=== PATIENT | male | born 1980 | race African-American/Black ===

== ENCOUNTER 2017-04-03 09:38 | Emergency (ER) | payer SELFPAY ==
[~2017-04-03] VITALS: Ht 172.7 cm; Wt 100.0 kg
[~2017-04-03 09:38] MED LIST: PROT40TA PO
[2017-04-03 09:40] VITALS: BP 122/78; PULSE 68; RESP 24; TEMP 97.7; O2SAT 100
[2017-04-03 09:50] VITALS: BP 184/90; PULSE 76; RESP 30; O2SAT 100
[2017-04-03] MEDS ORDERED: SODIUM CHLOR 0.9% 1000 ML INJ 1,000 ML IV SCH (09:57)
[2017-04-03] MEDS ORDERED: DEXAMETHASONE SOD PHOS 20 MG/5 ML VIAL IV PUSH ONE (10:00)
[2017-04-03] MEDS ORDERED: FAMOTIDINE 20 MG/2 ML VIAL IV PUSH ONE (10:00)
[2017-04-03] MEDS ORDERED: SODIUM CHLORIDE 0.9% FLUSH 10 ML FLUSH IV FLUSH PRN (10:00)
[2017-04-03] MEDS ORDERED: diphenhydrAMINE HCL 50 MG/ML VIAL IVP ONE (10:00)
[2017-04-03] MEDS: RESP: ALBUTEROL 2.5 MG/IPRATROPIUM 0.5 MG NEB (SCH) INH (10:16)
[2017-04-03 10:17] VITALS: O2SAT 100
[2017-04-03 10:38] LABS: AUTOMATED NEUTROPHIL # 3.3 TH/MM3 (1.8-7.7); BASOPHIL # 0.1 TH/MM3 (0-0.2); BASOPHIL % 0.9 % (0.0-2.0); EOSINOPHIL # 0.2 TH/MM3 (0-0.4); EOSINOPHIL % 3.3 % (0.0-4.0); HEMATOCRIT 41.7 % (39.0-51.0); HEMO FLAGS DIFF FINAL; LYMPH % 35.3 % (9.0-44.0); LYMPHOCYTE # 2.4 TH/MM3 (1.0-4.8); MEAN CELL VOLUME 87.7 FL (80.0-100.0); MEAN CORPUSCULAR HEMOGLOBIN 30.3 PG (27.0-34.0); MEAN CORPUSCULAR HGB CONC 34.6 % (32.0-36.0); MONO % 11.4 % (0.0-8.0); NEUT % 49.1 % (16.0-70.0); PLATELET COUNT 270 TH/MM3 (150-450); RED BLOOD COUNT 4.75 MIL/MM3 (4.50-5.90); RED CELL DISTRIBUTION WIDTH 12.9 % (11.6-17.2); WHITE BLOOD COUNT 6.8 TH/MM3 (4.0-11.0)
[2017-04-03 11:00] VITALS: BP 152/75; PULSE 86; RESP 18; O2SAT 100
[2017-04-03 11:06] LABS: ANION GAP 8 MEQ/L (5-15); AST (GOT) 48 U/L (15-37); BICARBONATE 25.9 MEQ/L (21.0-32.0); BLOOD UREA NITROGEN 8 MG/DL (7-18); CHLORIDE 106 MEQ/L (98-107); GLOMERULAR FILTRATION RATE 84 ML/MIN (>89); POTASSIUM 4.2 MEQ/L (3.5-5.1); SODIUM (NA) 140 MEQ/L (136-145)
[2017-04-03 11:09] LABS: ALKALINE PHOSPHATASE 79 U/L (45-117); ALT (GPT) 43 U/L (12-78)
--- NOTE | 2017-04-03 12:05 | RADRPT ---
EXAM DATE/TIME: 04/03/2017 11:34 [place] COMPARISON: No previous studies available for comparison. INDICATIONS : Shortness of breath and cough. MEDICAL HISTORY : None. SURGICAL HISTORY : None. ENCOUNTER: Initial ACUITY: 1 day PAIN SCORE: 0/10 LOCATION: Bilateral chest FINDINGS: A single view of the chest demonstrates the lungs to be symmetrically aerated without evidence of mas s, infiltrate or effusion. The cardiomediastinal contours are unremarkable. Osseous structures are intact. CONCLUSION: No acute disease. There is no evidence of pneumonia. The study is Midinspiratory. Petr Multani MD on April 03, 2017 at 12:03 Board Certified Radiologist. This report was verified electronically.
--- NOTE | 2017-04-03 12:47 | PD ---
HPI Chief Complaint: Respiratory Symptoms Time Seen by Provider: 10:10 Travel History International Travel<30 days: No Contact w/Intl Traveler<30days: No Traveled to known affect area: No History of Present Illness HPI Patient is a 36-year-old male who presents to emergency room with complaints of sore throat, cough, congestion since last night. Patient reports that he has been sick since yesterday, reports that because of his cough, he took some robitussin last night. Reports that this morning, his throat was burning and reports that it felt sore. Patient reports that it hurts for him to swallow. Reports no fever/chills. Denies n/v. No other c/o. PFSH Past Medical History Cancer: No Cardiovascular Problems: No Diminished Hearing: No Endocrine: No Genitourinary: No Hypertension: Yes Immune Disorder: No Musculoskeletal: No Neurologic: No Psychiatric: No Reproductive: No Respiratory: No Integumentary: Yes (CELLULITIS) Tetanus Vaccination: < 5 Years Influenza Vaccination: Yes Past Surgical History Other Surgery: Yes Social History Alcohol Use: No Tobacco Use: Yes (<1/2ppd) Substance Use: No Allergies-Medications (Allergen,Severity, Reaction): Coded Allergies: Robitussin DM (Verified Allergy, Severe, THROAT CLOSING, THROAT TIGHTENING , 04/03/17) Penicillin (Verified Allergy, Unknown, 04/03/17) Reported Meds & Prescriptions Reported Meds & Active Scripts Active Epipen 2-Hay Inj (Epinephrine) 0.3 Mg/0.3 Ml Pfpen 0.3 Mg IM ONCE PRN Benadryl Allergy (Diphenhydramine HCl) 25 Mg Tab 25 Mg PO Q6H PRN 7 Days Prednisone 20 Mg Tab 20 Mg PO BID 5 Days Azithromycin 500 Mg Tab 500 Mg PO DAILY Review of Systems General / Constitutional: No: Fever Eyes: No: Visual changes HENT: Positive: Sore Throat, Rhinorrhea, No: Headaches, Neck Pain Cardiovascular: No: Chest Pain or Discomfort Respiratory: Positive: Cough, Shortness of Breath Gastrointestinal: No: Abdominal Pain Genitourinary: No: Dysuria Musculoskeletal: No: Pain Skin: No Rash Neurologic: No: Weakness Psychiatric: No: Depression Endocrine: No: Polydipsia Hematologic/Lymphatic: No: Easy Bruising Physical Exam Narrative GENERAL: moderate distress, patient very anxious on exam SKIN: Focused skin assessment warm/dry. HEAD: Atraumatic. Normocephalic. EYES: Pupils equal and round. No scleral icterus. No injection or drainage. ENT: No nasal bleeding or discharge. Mucous membranes pink and moist. Uvula midline and patent with no swelling. Pharynx open and patent with swelling, patient does have erythema to posterior pharynx, patient is not drooling, patient talking in full sentences, airway is open and patent NECK: Trachea midline. No JVD. CARDIOVASCULAR: Regular rate and rhythm. No murmur appreciated. RESPIRATORY: No accessory muscle use. Clear to auscultation. Breath sounds equal bilaterally. GASTROINTESTINAL: Abdomen soft, non-tender, nondistended. Hepatic and splenic margins not palpable. MUSCULOSKELETAL: No obvious deformities. No clubbing. No cyanosis. No edema. NEUROLOGICAL: Awake and alert. No obvious cranial nerve deficits. Motor grossly within normal limits. Normal speech. PSYCHIATRIC: Patient anxious on exam Data Data Last Documented VS Vital Signs Date Time Temp Pulse Resp B/P Pulse Ox O2 Delivery O2 Flow Rate FiO2 04/03/17 11:00 86 18 152/75 100 Room Air 04/03/17 10:17 21 04/03/17 09:40 97.7 Orders Complete Blood Count With Diff (04/03/17 09:57) Comprehensive Metabolic Panel (04/03/17 09:57) Ecg Monitoring (04/03/17 09:57) Iv Access Insert/Monitor (04/03/17 09:57) Oximetry (04/03/17 09:57) Diphenhydramine Inj (Benadryl Inj) (04/03/17 10:00) Famotidine Inj (Pepcid Inj) (04/03/17 10:00) Albuterol-Ipratropium Neb (Duoneb Neb) (04/03/17 10:00) Sodium Chlor 0.9% 1000 Ml Inj (Ns 1000 M (04/03/17 09:57) Sodium Chloride 0.9% Flush (Ns Flush) (04/03/17 10:00) Dexamethasone Inj (Decadron Inj) (04/03/17 10:00) Influenzae A/B Antigen (04/03/17 10:15) Group A Rapid Strep Screen (04/03/17 10:15) Strep Culture (Group A) (04/03/17 10:35) Chest, Single Ap (04/03/17 11:19) Azithromycin Inj (Zithromax Inj) (04/03/17 13:00) Labs Laboratory Tests Test 04/03/17 10:10 White Blood Count 6.8 TH/MM3 Red Blood Count 4.75 MIL/MM3 Hemoglobin 14.4 GM/DL Hematocrit 41.7 % Mean Corpuscular Volume 87.7 FL Mean Corpuscular Hemoglobin 30.3 PG Mean Corpuscular Hemoglobin 34.6 % Concent Red Cell Distribution Width 12.9 % Platelet Count 270 TH/MM3 Mean Platelet Volume 9.0 FL Neutrophils (%) (Auto) 49.1 % Lymphocytes (%) (Auto) 35.3 % Monocytes (%) (Auto) 11.4 % Eosinophils (%) (Auto) 3.3 % Basophils (%) (Auto) 0.9 % Neutrophils # (Auto) 3.3 TH/MM3 Lymphocytes # (Auto) 2.4 TH/MM3 Monocytes # (Auto) 0.8 TH/MM3 Eosinophils # (Auto) 0.2 TH/MM3 Basophils # (Auto) 0.1 TH/MM3 CBC Comment DIFF FINAL Differential Comment Sodium Level 140 MEQ/L Potassium Level 4.2 MEQ/L Chloride Level 106 MEQ/L Carbon Dioxide Level 25.9 MEQ/L Anion Gap 8 MEQ/L Blood Urea Nitrogen 8 MG/DL Creatinine 1.20 MG/DL Estimat Glomerular Filtration 84 ML/MIN Rate Random Glucose 78 MG/DL Calcium Level 9.3 MG/DL Total Bilirubin 1.0 MG/DL Aspartate Amino Transf 48 U/L (AST/SGOT) Alanine Aminotransferase 43 U/L (ALT/SGPT) Alkaline Phosphatase 79 U/L Total Protein 7.4 GM/DL Albumin 3.7 GM/DL [facility] Medical Decision Making Medical Screen Exam Complete: Yes Emergency Medical Condition: Yes Interpretation(s) Vital Signs Date Time Temp Pulse Resp B/P Pulse Ox O2 Delivery O2 Flow Rate FiO2 04/03/17 11:00 86 18 152/75 100 Room Air 04/03/17 10:17 100 21 04/03/17 09:50 76 30 100 Room Air 04/03/17 09:50 76 30 184/90 100 Room Air 04/03/17 09:40 97.7 68 24 122/78 100 Room Air Differential Diagnosis Allergic reaction, anxiety reaction, pharyngitis, influenza, pneumonia, bronchitis Narrative Course 36-year-old male who presents to emergency room with complaints of cough, congestion, sore throat since last night. Patient reports that he took Robitussin last night and thinks that he may have had an allergic reaction to it. Patient reports that he woke this morning and his throat feels scratchy and , reports that it hurts to swallow. Patient did not take any Benadryl at home. Patient is anxious on exam, his airways are open and patent with no pharyngeal swelling or no swelling to the uvula. Patient is talking in full sentences, no drooling on exam. I do not believe the patient is having an allergic reaction to his medications as he took the Robitussin last night. I do believe the patient does have pharyngitis, reports that he has a scratchy throat and pain with swallowing. Patient is able to swallow his own secretions, patient is in no acute distress. Vital Signs Date Time Temp Pulse Resp B/P Pulse Ox O2 Delivery O2 Flow Rate FiO2 04/03/17 11:00 86 18 152/75 100 Room Air 04/03/17 10:17 100 21 04/03/17 09:50 76 30 100 Room Air 04/03/17 09:50 76 30 184/90 100 Room Air 04/03/17 09:40 97.7 68 24 122/78 100 Room Air Last Impressions Chest X-Ray 04/03/17 1119 Signed Impressions: Service Date/Time: Monday, April 03, 2017 11:34 - CONCLUSION: No acute disease. There is no evidence of pneumonia. The study is Midinspiratory. Petr Multani MD Microbiology Date/Time Procedure Status Source Growth 04/03/17 10:35 Group A Streptococcus Screen (PRIYANKA) - Final Complete Throat 04/03/17 10:35 Influenza Types A,B Antigen (PRIYANKA) - Final Complete Nasal Washing NEGATIVE FOR FLU A AND B ANTIGEN.... 04/03/17 10:35 Group A Streptococcus Screen Received Throat Pending Laboratory Tests Test 04/03/17 10:10 White Blood Count 6.8 TH/MM3 (4.0-11.0) Red Blood Count 4.75 MIL/MM3 (4.50-5.90) Hemoglobin 14.4 GM/DL (13.0-17.0) Hematocrit 41.7 % (39.0-51.0) Mean Corpuscular Volume 87.7 FL (80.0-100.0) Mean Corpuscular Hemoglobin 30.3 PG (27.0-34.0) Mean Corpuscular Hemoglobin 34.6 % Concent (32.0-36.0) Red Cell Distribution Width 12.9 % (11.6-17.2) Platelet Count 270 TH/MM3 (150-450) Mean Platelet Volume 9.0 FL (7.0-11.0) Neutrophils (%) (Auto) 49.1 % (16.0-70.0) Lymphocytes (%) (Auto) 35.3 % (9.0-44.0) Monocytes (%) (Auto) 11.4 % (0.0-8.0) Eosinophils (%) (Auto) 3.3 % (0.0-4.0) Basophils (%) (Auto) 0.9 % (0.0-2.0) Neutrophils # (Auto) 3.3 TH/MM3 (1.8-7.7) Lymphocytes # (Auto) 2.4 TH/MM3 (1.0-4.8) Monocytes # (Auto) 0.8 TH/MM3 (0-0.9) Eosinophils # (Auto) 0.2 TH/MM3 (0-0.4) Basophils # (Auto) 0.1 TH/MM3 (0-0.2) CBC Comment DIFF FINAL Differential Comment Sodium Level 140 MEQ/L (136-145) Potassium Level 4.2 MEQ/L (3.5-5.1) Chloride Level 106 MEQ/L (98-107) Carbon Dioxide Level 25.9 MEQ/L (21.0-32.0) Anion Gap 8 MEQ/L (5-15) Blood Urea Nitrogen 8 MG/DL (7-18) Creatinine 1.20 MG/DL (0.60-1.30) Estimat Glomerular Filtration 84 ML/MIN (>89) Rate Random Glucose 78 MG/DL (74-106) Calcium Level 9.3 MG/DL (8.5-10.1) Total Bilirubin 1.0 MG/DL (0.2-1.0) Aspartate Amino Transf 48 U/L (15-37) (AST/SGOT) Alanine Aminotransferase 43 U/L (12-78) (ALT/SGPT) Alkaline Phosphatase 79 U/L (45-117) Total Protein 7.4 GM/DL (6.4-8.2) Albumin 3.7 GM/DL (3.4-5.0) Patient was treated for possible allergic reaction with Benadryl, steroids although I do not believe that he truly had an allergic reaction to Robitussin. Patient was sent home with script for epi -pen as this could be life saving should he develop a true allergic reaction. He understands need to go to closed ER for observation should he have these symptoms. Patient was monitored for over 4.5 hours, patient with no airway involvement, speaking in full sentences and is nontoxic. Patient with most likely acute pharyngitis. Plan to treat for pharyngitis, reviewed with him need to follow up with pcp. Diagnosis Primary Impression: Pharyngitis Qualified Code: J02.9 - Pharyngitis, unspecified etiology Additional Impression: Allergic reaction Patient Instructions: General Instructions Additional Instructions: Please follow up with your primary care doctor on Wednesday Please take all antibiotics as prescribed Return to ER if symptoms worsen or progress Please go to closest ER if you administer EPI pen to yourself Med/Other Pt SpecificInfo: Prescription(s) given Scripts Epinephrine Inj (Epipen 2-Hay Inj)0.3 Mg/0.3 Ml Pfpen0.3 Mg IM ONCE PRN ( ALLERGIC REACTION) #1 PACK Ref 0 Prov:Rose Cleveland DO 04/03/17 Diphenhydramine (Benadryl Allergy)25 Mg Tab25 Mg PO Q6H PRN (ALLERGIES) 7 Days Ref 0 Prov:Rose Cleveland DO 04/03/17 Prednisone 20 Mg Tab20 Mg PO BID 5 Days Ref 0 Prov:Rose Cleveland DO 04/03/17 Azithromycin 500 Mg [id number] Mg PO DAILY #5 TAB Ref 0 Prov:Rose Cleveland DO 04/03/17 Disposition: 01 DISCHARGE HOME Condition: Stable Rose Cleveland DO April 03, 2017 12:47
[2017-04-03] MEDS ORDERED: AZITHROMYCIN INJ 500 MG in SODIUM CHLOR 0.9% 250 ML INJ 250 ML IV SCH (13:00)
[2017-04-03] MEDS ORDERED: PRED20 PO (13:16)
[2017-04-03] MEDS ORDERED: AZIT500T2 PO (13:16)
[2017-04-03] MEDS ORDERED: BENA25TA3 PO (13:25)
[2017-04-03] MEDS ORDERED: EPIP0.3I IM (13:25)
== END 2017-04-03 15:19 | disposition home or self-care (01) ==
LOC: NEPE 09:38
DX: J02.9 Acute pharyngitis, unspecified (principal); T78.40XA Allergy, unspecified, initial encounter
CPT/HCPCS: 71010; 80053; 85025; 87081; 87804; 87880; 94640; 94664; 96361; 96365; 96375; 99284; J0456; J1100; J1200; J7030; J7050

== ENCOUNTER 2017-06-05 23:49 | Emergency (ER) | payer MEDICAID ==
[~2017-06-05] VITALS: Ht 172.7 cm; Wt 102.8 kg
[~2017-06-05 23:49] MED LIST changes: +AZIT500T2 PO; +BENA25TA3 PO; +EPIP0.3I IM; +PRED20 PO; -PROT40TA PO
[2017-06-06 00:06] VITALS: BP 119/87; PULSE 72; RESP 14; TEMP 98; O2SAT 100
[2017-06-06 00:15] VITALS: RESP 18
[2017-06-06] MEDS ORDERED: IBUP800T23 PO (00:21)
[2017-06-06] MEDS ORDERED: ACET325C (00:21)
[2017-06-06] MEDS ORDERED: ASPI325T PO (00:21)
[2017-06-06 00:51] VITALS: BP 125/67; PULSE 68; RESP 18; O2SAT 97
[2017-06-06] MEDS ORDERED: IBUP-1129 PO (00:52)
[2017-06-06] MEDS ORDERED: OFLO0.3D9 RIGHT EAR (00:52)
--- NOTE | 2017-06-06 00:52 | PD ---
HPI Chief Complaint: ENT Complaint Time Seen by Provider: 00:49 Travel History International Travel<30 days: No Contact w/Intl Traveler<30days: No Traveled to known affect area: No History of Present Illness HPI 36-year-old male patient presents to the ER with 2 days history of right ear pain and drainage. He states that it started after he went swimming in the pool. He denies any fevers, vomiting, or any other symptoms. Modifying Factors: None Associated Signs & Symptoms: Right ear pain, drainage Risk Factors: Recent swimming PFSH Past Medical History Medical History: Denies Significant Hx Cancer: No Cardiovascular Problems: No Diminished Hearing: No Endocrine: No Genitourinary: No Hypertension: Yes Immune Disorder: No Musculoskeletal: No Neurologic: No Psychiatric: No Reproductive: No Respiratory: No Tetanus Vaccination: < 5 Years Influenza Vaccination: No Past Surgical History Surgical History: No Previous Surgery Other Surgery: Yes Social History Alcohol Use: No Tobacco Use: Yes (<1/2ppd) Substance Use: No Allergies-Medications (Allergen,Severity, Reaction): Coded Allergies: Robitussin DM (Verified Allergy, Severe, THROAT CLOSING, THROAT TIGHTENING , 04/03/17) Penicillin (Verified Allergy, Unknown, 04/03/17) Reported Meds & Prescriptions Reported Meds & Active Scripts Active Reported Ibuprofen 800 Mg Tab 1,000 Mg PO Q6HR PRN Aspirin 325 Mg Tab 325 Mg PO ONCE PRN Acetaminophen 325 Mg Capsule Review of Systems Except as stated in HPI: all other systems reviewed are Neg Physical Exam Narrative GENERAL: Young -[place] male patient currently in moderate distress. Awake and oriented 3. SKIN: Focused skin assessment warm/dry. HEAD: Atraumatic. Normocephalic. EYES: Pupils equal and round. No scleral icterus. No injection or drainage. ENT: No nasal bleeding or discharge. Mucous membranes pink and moist. EARS: The left pinna, external canal, TM with no surrounding erythema, edema, or signs of puncture. There is notable edema, tenderness on palpation of the tragus and edema of the canal with notable whitish discharge. I am unable to clearly see the TM. NECK: Trachea midline. No JVD. CARDIOVASCULAR: Regular rate and rhythm. No murmur appreciated. RESPIRATORY: No accessory muscle use. Clear to auscultation. Breath sounds equal bilaterally. GASTROINTESTINAL: Abdomen soft, non-tender, nondistended. Hepatic and splenic margins not palpable. MUSCULOSKELETAL: No obvious deformities. No clubbing. No cyanosis. No edema. NEUROLOGICAL: Awake and alert. No obvious cranial nerve deficits. Motor grossly within normal limits. Normal speech. PSYCHIATRIC: Appropriate mood and affect; insight and judgment normal. Data Data Last Documented VS Vital Signs Date Time Temp Pulse Resp B/P Pulse Ox O2 Delivery O2 Flow Rate FiO2 06/06/17 00:15 18 06/06/17 00:06 98.0 72 119/87 100 MDM Medical Decision Making Medical Screen Exam Complete: Yes Emergency Medical Condition: Yes Medical Record Reviewed: Yes Differential Diagnosis Right otitis media versus otitis externa Narrative Course According to history and exam, patient has an otitis externa and my plan would be to treat him with eardrops. He will need to follow-up with primary care physician or ENT if symptoms do not resolve over the next week. Return for any worsening in pain, or new symptoms as needed. The plan has been discussed with him and he states understanding. Diagnosis Primary Impression: Otitis externa Med/Other Pt SpecificInfo: Prescription(s) given Scripts Ibuprofen (Motrin Ib)200 Mg [id number] Mg PO QID PRN (PAIN SCALE 1 TO 10) #20 Prov:Dayna Garcia MD 06/06/17 Ofloxacin Otic Drops 0.3 % Drops10 Drop RIGHT EAR DAILY #1 BOTTLE Ref 0 Prov:Dayna Garcia MD 06/06/17 Disposition: 01 DISCHARGE HOME Condition: Stable Dayna Garcia MD Jun 06, 2017 00:52
[2017-06-06] MEDS ORDERED: IBUPROFEN 600 MG TAB PO ONE (01:00)
== END 2017-06-06 00:56 | disposition home or self-care (01) ==
LOC: PHED 23:49
DX: H60.91 Unspecified otitis externa, right ear (principal)
CPT/HCPCS: 99283

== ENCOUNTER 2017-11-11 21:21 | Emergency (ER) | payer MEDICAID ==
[~2017-11-11 21:21] MED LIST changes: +ACET325C; +ASPI-183 PO; -AZIT500T2 PO; -BENA25TA3 PO; -EPIP0.3I IM; +IBUP-1129 PO; +IBUP1TAB7 PO; +OFLO0.3D9 RIGHT EAR; -PRED20 PO
[2017-11-11 21:23] VITALS: BP 131/81; PULSE 67; RESP 16; TEMP 98.1; O2SAT 99
[2017-11-11] MEDS ORDERED: diphenhydrAMINE HCL 50 MG CAP PO ONE (22:00)
[2017-11-11] MEDS ORDERED: predniSONE 20 MG TAB PO ONE (22:00)
--- NOTE | 2017-11-11 22:29 | PD ---
HPI Chief Complaint: Allergic/Adverse Reaction Time Seen by Provider: 22:00 Travel History International Travel<30 days: No Contact w/Intl Traveler<30days: No Traveled to known affect area: No History of Present Illness HPI This is a 37-year-old male who presents for evaluation of a rash. Symptoms started yesterday. The rash is pruritic, primarily found on his torso. It is more mildly present on his proximal extremities. He took some Benadryl over-the -counter and the rash persists with prompted evaluation. Denies sore throat, cough, congestion, fevers or chills, nausea or vomiting, abdominal pain. Denies any new medications, creams, lotions, detergents. His is currently being treated for streptococcal pharyngitis. No other complaints. PFSH Past Medical History Cancer: No Cardiovascular Problems: No Diminished Hearing: No Endocrine: No Genitourinary: No Hypertension: Yes Immune Disorder: No Musculoskeletal: No Neurologic: No Psychiatric: No Reproductive: No Respiratory: No Immunizations Current: Yes Tetanus Vaccination: < 5 Years Influenza Vaccination: No Past Surgical History Other Surgery: Yes Social History Alcohol Use: No Tobacco Use: Yes (<1/2ppd) Substance Use: No Allergies-Medications (Allergen,Severity, Reaction): Coded Allergies: dextromethorphan (Unverified Allergy, Severe, THROAT CLOSING, THROAT TIGHTENING, 11/11/17) guaifenesin (Unverified Allergy, Severe, THROAT CLOSING, THROAT TIGHTENING , 11/11/17) penicillin G (Unverified Allergy, Unknown, 11/11/17) Reported Meds & Prescriptions Reported Meds & Active Scripts Active Clindamycin (Clindamycin HCl) 300 Mg Cap 300 Mg PO TID 10 Days Review of Systems Except as stated in HPI: all other systems reviewed are Neg Physical Exam Narrative GENERAL: Well-developed well-nourished male in no acute distress SKIN: Warm and dry. Widespread papular rash mostly concentrated on the torso. No vesicles, pustules, petechiae, purpura, hives HEAD: Atraumatic. Normocephalic. EYES: Pupils equal and round. No scleral icterus. No injection or drainage. ENT: No nasal bleeding or discharge. Mucous membranes pink and moist. NECK: Trachea midline. No JVD. CARDIOVASCULAR: Regular rate and rhythm. No murmur appreciated. RESPIRATORY: No accessory muscle use. Clear to auscultation. Breath sounds equal bilaterally. GASTROINTESTINAL: Abdomen soft, non-tender, nondistended. Hepatic and splenic margins not palpable. MUSCULOSKELETAL: No obvious deformities. No clubbing. No cyanosis. No edema. NEUROLOGICAL: Awake and alert. No obvious cranial nerve deficits. Motor grossly within normal limits. Normal speech. PSYCHIATRIC: Appropriate mood and affect; insight and judgment normal. Data Data Last Documented VS Vital Signs Date Time Temp Pulse Resp B/P (MAP) Pulse Ox O2 Delivery O2 Flow Rate FiO2 11/11/17 21:23 98.1 67 16 131/81 (98) 99 Room Air Orders Orders Group A Rapid Strep Screen (11/11/17 21:57) Prednisone (Deltasone) (11/11/17 22:00) Diphenhydramine (Benadryl) (11/11/17 22:00) Clindamycin (Cleocin) (11/11/17 23:15) Ed Discharge Order (11/11/17 23:01) MDM Medical Decision Making Medical Screen Exam Complete: Yes Emergency Medical Condition: Yes Medical Record Reviewed: Yes Differential Diagnosis pityiriasis rosea, viral exanthem, scarlet fever, allergic contact dermatitis, scabies Narrative Course 37-year-old male with two-day history of widespread pruritic rash. Examination reveals a papular rash most concentrated on the torso and proximal extremities. Rash has an unknown etiology. His is currently being treated for streptococcal pharyngitis. A rapid strep she was therefore is positive. This is the etiology of his morbilliform type rash. He will be started on clindamycin. Stable for discharge. Diagnosis Primary Impression: Scarlet fever Additional Instructions: Medication as prescribed. [id number] Benadryl for itching. Stay well hydrated well-nourished. Return for any emergent medical conditions. Med/Other Pt SpecificInfo: Prescription(s) given Scripts Clindamycin (Clindamycin) 300 Mg Cap 300 MG PO TID for Infection for 10 Days, CAP 0 Refills Prov: Devon Wade MD 11/11/17 Disposition: 01 DISCHARGE HOME Condition: Stable Gokul Ash Nov 11, 2017 22:29
[2017-11-11] MEDS ORDERED: CLIN300C5 PO (23:01)
[2017-11-11] MEDS ORDERED: CLINDAMYCIN 150 MG CAP PO ONE (23:15)
== END 2017-11-11 23:22 | disposition home or self-care (01) ==
LOC: NEPD 21:21
DX: J02.0 Streptococcal pharyngitis (principal); A38.9 Scarlet fever, uncomplicated; B95.0 Streptococcus, group A, as the cause of diseases classified elsewhere; F17.200 Nicotine dependence, unspecified, uncomplicated
CPT/HCPCS: 87880; 99283; J7512; Q0163

== ENCOUNTER 2017-11-17 19:54 | Emergency (ER) | payer MEDICAID ==
[~2017-11-17 19:54] MED LIST changes: -ACET325C; -ASPI-183 PO; +CLIN300C5 PO; -IBUP-1129 PO; -IBUP1TAB7 PO; -OFLO0.3D9 RIGHT EAR
[2017-11-17 19:56] VITALS: BP 142/84; PULSE 84; RESP 16; TEMP 98.4; O2SAT 98
[2017-11-17] MEDS ORDERED: predniSONE 20 MG TAB PO ONE (20:30)
[2017-11-17] MEDS ORDERED: PERM5CRE TOPICAL (20:33)
[2017-11-17] MEDS ORDERED: PRED5TAB PO (20:33)
--- NOTE | 2017-11-17 20:39 | PD ---
HPI Chief Complaint: Skin Problem Time Seen by Provider: 20:16 Travel History International Travel<30 days: No Contact w/Intl Traveler<30days: No Traveled to known affect area: No History of Present Illness HPI 37-year-old male presents to the [facility] department complaining of diffuse, intensely pruritic lesions for 1-2 weeks. Patient says that they are "everywhere" to include his coronary region, trunk, and extremities. Patient says that the rash spares his palms. Patient states that he was seen here previously and diagnosed with rheumatic fever. Patient states he has been taking medication as prescribed but the rash has not improved. Patient denies recent travel, new soaps, foods, lotions. Patient denies sleeping in hotel rooms. Patient says no other member of the household has similar symptoms. Patient denies fevers or chills. PFSH Past Medical History Cancer: No Cardiovascular Problems: No Diminished Hearing: No Endocrine: No Genitourinary: No Hypertension: Yes Immune Disorder: No Musculoskeletal: No Neurologic: No Psychiatric: No Reproductive: No Respiratory: No Immunizations Current: Yes Tetanus Vaccination: < 5 Years Influenza Vaccination: No Past Surgical History Other Surgery: Yes Social History Alcohol Use: No Tobacco Use: Yes (<1/2ppd) Substance Use: No Allergies-Medications (Allergen,Severity, Reaction): Coded Allergies: dextromethorphan (Unverified Allergy, Severe, THROAT CLOSING, THROAT TIGHTENING, 11/11/17) guaifenesin (Unverified Allergy, Severe, THROAT CLOSING, THROAT TIGHTENING , 11/11/17) penicillin G (Unverified Allergy, Unknown, 11/11/17) Reported Meds & Prescriptions Reported Meds & Active Scripts Active Prednisone 5 Mg Tab 5 Mg PO DAILY 7 Days Permethrin Topical 5% (Permethrin) 5% Cream 1 Applic TOPICAL ONCE Apply head to toe. Leave on for 8-12 hours then rinse off. You may repeat in 5-7 days if symptoms are not resolved. Clindamycin (Clindamycin HCl) 300 Mg Cap 300 Mg PO TID 10 Days Physical Exam Narrative GENERAL: Well-developed well-nourished in mild distress SKIN: Focused skin assessment warm/dry. Diffuse papules sparing the face and palms. Multiple excoriations with breaks in skin. No obvious cellulitis or cellular components. HEAD: Atraumatic. Normocephalic. EYES: Pupils equal and round. No scleral icterus. No injection or drainage. ischarge. Mucous membranes pink and moist. THROAT: No pharyngeal injection, exudates, or tonsillar hypertrophy. Airway is patent. NECK: Trachea midline. No JVD. CARDIOVASCULAR: Regular rate and rhythm. No murmur appreciated. RESPIRATORY: No accessory muscle use. Clear to auscultation. Breath sounds equal bilaterally. GASTROINTESTINAL: Abdomen soft, non-tender, nondistended. MUSCULOSKELETAL: No obvious deformities. No clubbing. No cyanosis. No edema. NEUROLOGICAL: Awake and alert. No obvious cranial nerve deficits. Motor grossly within normal limits. Normal speech. PSYCHIATRIC: Appropriate mood and affect; insight and judgment normal. Data Data Last Documented VS Vital Signs Date Time Temp Pulse Resp B/P (MAP) Pulse Ox O2 Delivery O2 Flow Rate FiO2 11/17/17 20:37 11/17/17 19:56 98.4 84 16 98 Room Air Orders Orders Prednisone (Deltasone) (11/17/17 20:30) Ed Discharge Order (11/17/17 20:39) MDM Medical Decision Making Medical Screen Exam Complete: Yes Emergency Medical Condition: Yes Differential Diagnosis Scabies, bedbugs, rheumatic fever, pityriasis rosacea, shingles, contact dermatitis, allergic dermatitis Narrative Course 37-year-old male presents to the emergency department complaining of diffuse, intensely pruritic lesions for 1-2 weeks. Patient says that they are "everywhere" to include his coronary region, trunk, and extremities. Patient says that the rash spares his palms. Patient states that he was seen here previously and diagnosed with rheumatic fever. Patient states he has been taking medication as prescribed but the rash has not improved. Patient denies recent travel, new soaps, foods, lotions. Patient denies sleeping in hotel rooms. Patient says no other member of the household has similar symptoms. Patient denies fevers or chills. Vital signs stable Physical exam findings-diffuse papular rash with excoriations. Rash spares the palms. No obvious burrows. No obvious herald patch to demonstrate pityriasis. Patient has been taking clindamycin for his rheumatic fever. States the rash has not improved. Upon further discussion with the girlfriend, she demonstrated potential lesions on her knuckles but denies rash anywhere else. He states that he has tried multiple [id number] medications to include hydrocortisone and Benadryl without significant relief. Prednisone administer to the emergency department for his pruritus. Short course and low dose of prednisone administered for outpatient therapy. It is obvious the patient has had excessive pruritus resulting in excoriations and breaks in the skin. Permethrin cream for likely scabies outbreak. It is unusual that the rest the family is not affected however, advised that this infection is contagious. Continue clindamycin as prescribed. Patient advised to avoid contact with others as this is contagious. Clean sheets and other linen in hot water. Advised to follow-up with primary care physician within 2-3 days. Consider follow-up with a video game programmer. If symptoms persist or worsen return to the emergency department. Diagnosis Primary Impression: Scabies Referrals: Primary Care Physician Additional Instructions: Use medications as prescribed. Follow-up the primary care physician within 2-3 days. Consider follow-up with video game programmer. Use prednisone for itching. Scripts Prednisone (Prednisone) 5 Mg Tab 5 MG PO DAILY for Itching for 7 Days, #7 TAB 0 Refills Prov: Arvin Edwards MD 11/17/17 Permethrin Topical 5% (Permethrin Topical 5%) 5% Cream 1 APPLIC TOPICAL ONCE for Scabies, #2 TUBE 0 Refills Apply head to toe. Leave on for 8-12 hours then rinse off. You may repeat in 5-7 days if symptoms are not resolved. Prov: Arvin Edwards MD 11/17/17 Disposition: 01 DISCHARGE HOME Condition: Stable Vianca Sánchez Nov 17, 2017 20:39
== END 2017-11-17 20:59 | disposition home or self-care (01) ==
LOC: NEPK 19:54
DX: B86 Scabies (principal); I10 Essential (primary) hypertension; F17.200 Nicotine dependence, unspecified, uncomplicated; Z79.899 Other long term (current) drug therapy; Z88.0 Allergy status to penicillin; Z88.8 Allergy status to other drugs, medicaments and biological substances
CPT/HCPCS: 99283; J7512

== ENCOUNTER 2018-04-03 13:19 | Emergency (ER) | payer SELFPAY, MEDICAID ==
[2018-04-03] MEDS ORDERED: SODIUM CHLORIDE 0.9% FLUSH 10 ML FLUSH IVF (13:45)
[2018-04-03] MEDS: SODIUM CHLOR 0.9% 1000 ML INJ 1,000 ML IV (13:53)
[2018-04-03] MEDS: ONDANSETRON HCL 4 MG/2 ML VIAL IVP (13:53)
[2018-04-03 14:07] LABS: AUTOMATED NEUTROPHIL # 9.3 TH/MM3 (1.8-7.7); BASOPHIL # 0.1 TH/MM3 (0-0.2); BASOPHIL % 0.5 % (0.0-2.0); EOSINOPHIL % 0.2 % (0.0-4.0); HEMATOCRIT 43.5 % (39.0-51.0); HEMO FLAGS DIFF FINAL; HEMOGLOBIN 14.3 GM/DL (13.0-17.0); LYMPH % 9.1 % (9.0-44.0); MEAN CELL VOLUME 88.7 FL (80.0-100.0); MEAN CORPUSCULAR HEMOGLOBIN 29.2 PG (27.0-34.0); MEAN CORPUSCULAR HGB CONC 32.9 % (32.0-36.0); MEAN PLATELET VOLUME 8.6 FL (7.0-11.0); MONO % 6.9 % (0.0-8.0); MONOCYTE # 0.8 TH/MM3 (0-0.9); NEUT % 83.3 % (16.0-70.0); PLATELET COUNT 274 TH/MM3 (150-450); RED BLOOD COUNT 4.91 MIL/MM3 (4.50-5.90); RED CELL DISTRIBUTION WIDTH 12.3 % (11.6-17.2); WHITE BLOOD COUNT 11.2 TH/MM3 (4.0-11.0)
[2018-04-03 14:29] LABS: CHLORIDE 105 MEQ/L (98-107); POTASSIUM 4.2 MEQ/L (3.5-5.1); SODIUM (NA) 137 MEQ/L (136-145)
[2018-04-03] MEDS: IOHEXOL 350 MG/ML 10 ML VIAL (for RAD DIAG) IVCONTRAST (14:31)
[2018-04-03 14:32] LABS: ANION GAP 5 MEQ/L (5-15); BICARBONATE 26.8 MEQ/L (21.0-32.0); CALCIUM 9.2 MG/DL (8.5-10.1); GLUCOSE,RANDOM 99 MG/DL (74-106); MAGNESIUM 1.9 MG/DL (1.5-2.5)
[2018-04-03 14:33] LABS: BLOOD UREA NITROGEN 15 MG/DL (7-18)
[2018-04-03 14:36] LABS: GLOMERULAR FILTRATION RATE 92 ML/MIN (>89)
== END 2018-04-03 15:12 | disposition home or self-care (01) ==
LOC: PHED 13:19
DX: R42 Dizziness and giddiness (principal); J18.9 Pneumonia, unspecified organism; I45.10 Unspecified right bundle-branch block; R94.31 Abnormal electrocardiogram [ECG] [EKG]; I10 Essential (primary) hypertension; F17.200 Nicotine dependence, unspecified, uncomplicated; Z88.0 Allergy status to penicillin; Z88.8 Allergy status to other drugs, medicaments and biological substances
CPT/HCPCS: 71045; 71275; 80048; 83735; 85025; 93005; 96374; 99285-25